=== PATIENT | female | born 1980 | race Hispanic/Latino ===

== ENCOUNTER 2023-11-19 11:01 | Emergency (ER) | payer SELFPAY ==
[~2023-11-19] VITALS: Ht 157.5 cm; Wt 56.7 kg
[2023-11-19] MEDS: ONDANSETRON 4MG INJ IVP ONE (12:06)
[2023-11-19] MEDS: morPHINE 2 MG SYG IVP ONE (12:07)
[2023-11-19 12:17] LABS: BASOPHILS # (AUTO) 0.02 K/uL (0.00-0.20); BASOPHILS % (AUTO) 0.3 % (0.0-5.0); EOSINOPHILS # (AUTO) 0.15 K/uL (0.00-0.70); HEMATOCRIT 36.9 % (36-48); IMMATURE GRANULOCYTE ABSOLUTE 0.03 K/uL (0-1); LYMPHOCYTES # (AUTO) 1.2 K/uL (1.0-4.8); LYMPHOCYTES % (AUTO) 15.5 % (21.0-51.0); MEAN CORPUSCULAR HEMOGLOBIN 27.1 pg (27.0-33.0); MEAN CORPUSCULAR HGB CONC 32.8 g/dL (32.0-36.0); MEAN CORPUSCULAR VOLUME 82.6 fL (79-99); MONOCYTES # (AUTO) 0.7 K/uL (0.1-1.0); NEUTROPHILS # (AUTO) 5.5 K/uL (1.8-7.7); NEUTROPHILS % (AUTO) 72.8 % (40.0-77.0); PLATELET COUNT (AUTO) 277 K/uL (130-400); RED BLOOD CELL COUNT(AUTO) 4.47 MIL/uL (4.00-5.50); RED CELL DISTRIBUTION WIDTH 16.7 % (11.0-15.5); WHITE BLOOD COUNT (AUTO) 7.6 K/uL (4.8-10.8)
[2023-11-19 12:31] LABS: ALBUMIN 3.7 g/dL (3.5-5.0); CREATININE 0.9 mg/dL (0.5-1.0); POTASSIUM 3.3 mmol/L (3.5-5.1)
[2023-11-19] MEDS: LAbetaLOL 20MG SYG IV ONE (12:32)
[2023-11-19 12:34] LABS: BILIRUBIN,TOTAL 0.5 mg/dL (0.2-1.0); TOTAL PROTEIN, SERUM 8.3 g/dL (6.0-8.3)
[2023-11-19 12:36] LABS: APPEARANCE,URINE CLEAR (CLEAR); BILIRUBIN,URINE NEGATIVE (NEGATIVE); COLOR,URINE LIGHT-YELLOW (YELLOW); GLUCOSE, URINE (UA) >=1000 mg/dL (NEGATIVE); KETONES,URINE 5 mg/dL (NEGATIVE); LEUKOCYTE ESTERASE ,URINE 250 Leu/uL (NEGATIVE); NITRATE,URINE NEGATIVE (NEGATIVE); OCCULT BLOOD,URINE NEGATIVE (NEGATIVE); PH,URINE 6.5 (5.0-8.0); UROBILINOGEN,URINE 0.2 mg/dL (0.2-1.0)
[2023-11-19 12:37] LABS: ADD UA MICROSCOPIC YES
[2023-11-19 12:40] LABS: PROTEIN,URINE TRACE mg/dL (NEGATIVE)
[2023-11-19 12:42] LABS: BACTERIA,URINE FEW /HPF (None Seen); MUCUS,URINE RARE LPF (None Seen); SQUAMOUS EPITHELIAL CELL,UR MOD /HPF (0-2)
[2023-11-19] MEDS: cefTRIAXone 1G VIAL IVPB ONE (13:37)
[2023-11-19] MEDS: INSULIN humuLIN R 100 UNIT/ML 3ML IV ONE (13:39)
[2023-11-19] MEDS: 0.9% NACL 500ML IV.SOLN 500 ML IV ONE (13:40)
[2023-11-19] MEDS: ketOROlac 15MG/ML VIAL (15MG/ML) IV ONE (15:05)
[2023-11-19] MEDS ORDERED: KETO10TA2 PO (15:05)
[2023-11-19] MEDS ORDERED: CEPH500B PO (15:05)
[2023-11-19 15:17] VITALS: BP 180/85; PULSE 80; RESP 18; TEMP 98.2; O2SAT 100
== END 2023-11-19 15:24 | disposition home or self-care (01) ==
LOC: EEVIPCON 11:01 → EDH 11:01
DX: E72.51 Non-ketotic hyperglycinemia (principal); N39.0 Urinary tract infection, site not specified; R51.9 Headache, unspecified; V92.09XA Drowning and submersion due to fall off unspecified watercraft, initial encounter; Y93.89 Activity, other specified; Y92.89 Other specified places as the place of occurrence of the external cause; Y99.8 Other external cause status
CPT/HCPCS: 99285; 96375; 70450; 96374; 80053; 84703; 83690; 85025; 87086; 82948; 81001; 36415; 74176; J1815; J7040; J2270; J0696; J2405; J1885